=== PATIENT | female | born 1980 | race Asian ===

== ENCOUNTER 2017-10-19 05:47 | Emergency (ER) | payer MEDICAID, OTHER ==
[~2017-10-19] VITALS: Ht 157.5 cm; Wt 68.0 kg
[2017-10-19] MEDS ORDERED: IBUPROFEN 600MG TABLET PO ONE (06:45)
[2017-10-19 10:59] VITALS: BP 130/82
== END 2017-10-19 13:33 | disposition home or self-care (01) ==
LOC: ER 05:47
DX: S16.1XXA Strain of muscle, fascia and tendon at neck level, initial encounter (principal); S00.12XA Contusion of left eyelid and periocular area, initial encounter; S69.91XA Unspecified injury of right wrist, hand and finger(s), initial encounter; Y08.89XA Assault by other specified means, initial encounter; Y93.89 Activity, other specified; Y92.89 Other specified places as the place of occurrence of the external cause; Y99.8 Other external cause status
CPT/HCPCS: 29130; 70486; 72125; 73140; 81025; 99284; Z7610